=== PATIENT | female | born 1965 | race Caucasian/White ===

== ENCOUNTER 2017-11-25 21:34 | Emergency (ER) | payer BC ==
[2017-11-25] MEDS ORDERED: Albuterol/Ipratropium 3.0-0.5 MG/3 ML Neb Soln NEB ONE (22:34)
[2017-11-25] MEDS ORDERED: Azithromycin 500 MG Tab PO ONE (23:53)
[2017-11-25] MEDS ORDERED: Potassium Chloride 20 MEQ Tab.ER PO ONE (23:53)
[2017-11-25] MEDS ORDERED: methylPREDNISolone Sodium Succinate 125 MG/2 ML SDV IM ONE (23:56)
--- NOTE | 2017-11-25 23:59 | EDM.PDOC ---
ED HPI GENERAL MEDICAL PROBLEM - General Chief Complaint: General Stated Complaint: SOB,SHAKY,DIZZY Time Seen by Provider: 11/25/17 21:50 Source of Information: Reports: Patient History Limitations: Reports: No Limitations - History of Present Illness INITIAL COMMENTS - FREE TEXT/NARRATIVE: c/o sob intermittent x 1w more anxious tonight when lying in bed, thinks COPD getting worse, run out of Symbicort and Ventolin HFA smoking 1/2 ppd, still drinking alcohol daily, thinking re using nicotine vapor no f/c/d intermittent cough, no sputum K low at 3.2, has been low before CBC neg, yet CRP 1.1 suggesting infection CxR 2V neg a little better after Duoneb - Related Data Allergies Allergy/AdvReac Type Severity Reaction Status Date / Time codeine Allergy Nausea Verified 11/26/17 00:21 Home Meds: Home Meds Albuterol Sulfate [Ventolin Hfa] 2 puff IH Q4H PRN #1 hfa.aer.ad 11/26/17 [Rx] Azithromycin [Zithromax] 250 mg PO DAILY #4 tab 11/26/17 [Rx] Budesonide/Formoterol Fumarate [Symbicort 160-4.5 Mcg Inhaler] 1 puff IH BID #1 canister 11/26/17 [Rx] Potassium Chloride 20 meq PO BID #6 tab.er.prt 11/26/17 [Rx] predniSONE 20 mg PO DAILY #7 tab 11/26/17 [Rx] Past Medical History Respiratory History: Reports: COPD - Past Surgical History HEENT Surgical History: Reports: Naso-Sinus Surgery Female Surgical History: Reports: Hysterectomy Musculoskeletal Surgical History: Reports: Arthroscopic Knee, Other (See Below) Other Musculoskeletal Surgeries/Procedures:: Chronic pain neck and back. Cervical fusion, back fusion. Needs replacements to both knees. Social & Family History - Tobacco Use Smoking Status *Q: Current Every Day Smoker Years of Tobacco use: 35 Packs/Tins Daily: 0.5 - Alcohol Use Days Per Week of Alcohol Use: 4 Number of Drinks Per Day: 4 Total Drinks Per Week: 16 - Recreational Drug Use Recreational Drug Use: No ED ROS GENERAL - Review of Systems Review Of Systems: See Below Constitutional: Reports: No Symptoms HEENT: Reports: No Symptoms Respiratory: Reports: Shortness of Breath, Cough Cardiovascular: Reports: No Symptoms Endocrine: Reports: No Symptoms GI/Abdominal: Reports: No Symptoms : Reports: No Symptoms Musculoskeletal: Reports: No Symptoms Skin: Reports: No Symptoms Neurological: Reports: No Symptoms Psychiatric: Reports: No Symptoms Hematologic/Lymphatic: Reports: No Symptoms Immunologic: Reports: No Symptoms ED EXAM, GENERAL - Physical Exam Exam: See Below Exam Limited By: No Limitations General Appearance: Alert, WD/WN, No Apparent Distress, Anxious Ears: Normal External Exam Nose: Normal Inspection, Normal Mucosa, No Blood Throat/Mouth: Normal Inspection, Normal Lips, Normal Teeth, Normal Gums, Normal Oropharynx, Normal Voice, No Airway Compromise Head: Atraumatic, Normocephalic Neck: Normal Inspection, Supple, Non-Tender, Full Range of Motion Respiratory/Chest: Other (PO 97% RA, anxious yet fair to good AE, no cough appreciated, a few rhonchi and crackles on L side c/w COPD, no discrete rales) Cardiovascular: Regular Rate, Rhythm, No Edema, No Gallop, No JVD, No Rub, Other (2/6 TRAV at LSB) GI/Abdominal: Normal Bowel Sounds, Soft, Non-Tender, No Distention Back Exam: Normal Inspection, Full Range of Motion Extremities: Normal Inspection, Normal Range of Motion, Non-Tender, No Pedal Edema Neurological: Alert, Oriented, CN II-XII Intact, Normal Cognition, No Motor/ Sensory Deficits Psychiatric: Anxious Skin Exam: Warm, Dry, Intact, Normal Color, No Rash Lymphatic: No Adenopathy Course - Orders/Labs/Meds Orders: Active Orders 24 hr Category Date Time Status RT Aerosol Therapy [RC] ASDIRECTED Care 11/25/17 22:34 Active Chest 2V [CR] Stat Exams 11/25/17 22:44 Taken Azithromycin [Zithromax] Med 11/25/17 23:53 Once 500 mg PO ONETIME ONE Potassium Chloride [Klor-Con M20] Med 11/25/17 23:53 Once 40 meq PO ONETIME ONE Labs: Laboratory Tests 11/25/17 11/25/17 11/25/17 Range/Units 23:10 23:10 23:10 WBC 8.9 (4.5-12.0) X10-3/uL RBC 4.88 (3.23-5.20) x10(6)uL Hgb 15.4 (11.5-15.5) g/dL Hct 45.5 (30.0-51.3) % MCV 93.2 (80-96) fL MCH 31.5 (27.7-33.6) pg MCHC 33.8 (32.2-35.4) g/dL RDW 14.0 (11.5-15.5) % Plt Count 186 (125-369) X10(3)uL MPV 8.1 (7.4-10.4) fL Neut % (Auto) 66.9 (46-82) % Lymph % (Auto) 23.4 (13-37) % [place] % (Auto) 6.6 (4-12) % Eos % (Auto) 2 (1.0-5.0) % Baso % (Auto) 1 (0-2) % Neut # (Auto) 5.9 (1.6-8.3) # Lymph # (Auto) 2.1 (0.6-5.0) # [place] # (Auto) 0.6 (0.0-1.3) # Eos # (Auto) 0.2 (0.0-0.8) # Baso # (Auto) 0.1 (0.0-0.2) # Sodium 139 (135-145) mmol/L Potassium 3.2 L (3.5-5.3) mmol/L Chloride 99 L (100-110) mmol/L Carbon Dioxide 30 (21-32) mmol/L BUN 14 (7-18) mg/dL Creatinine 0.7 (0.55-1.02) mg/dL Est Cr Clr Drug Dosing TNP Estimated GFR (MDRD) > 60 (>60) BUN/Creatinine Ratio 20.0 (9-20) Glucose 109 (80-116) mg/dL Calcium 8.9 (8.6-10.2) mg/dL Total Bilirubin 0.5 (0.1-1.3) mg/dL AST 50 H (5-25) IU/L ALT 83 H (12-36) U/L Alkaline Phosphatase 113 H (56-112) IU/L Troponin I < 0.017 L (<0.017-0.056) ng/mL C-Reactive Protein 1.1 H (0.5-0.9) mg/dL Total Protein 7.4 (6.0-8.0) g/dL Albumin 3.6 (3.5-5.2) g/dL Globulin 3.8 g/dL Albumin/Globulin Ratio 1.0 Meds: Medications Discontinued Medications Generic Name Dose Route Start Last Admin Trade Name Freq PRN Reason Stop Dose Admin Albuterol/Ipratropium 3 ml 11/25/17 22:34 11/25/17 22:50 Duoneb 3.0-0.5 Mg/3 Ml NEB 11/25/17 22:35 3 ml ONETIME ONE Administration Departure - Departure Time of Disposition: 00:00 Disposition: Home, Self-Care 01 Condition: Good Clinical Impression: COPD exacerbation, Hypokalemia, Nicotine dependence - Discharge Information Prescriptions: Albuterol Sulfate [Ventolin Hfa] 2 puff IH Q4H PRN #1 hfa.aer.ad PRN Reason: Wheezing Azithromycin [Zithromax] 250 mg PO DAILY #4 tab Budesonide/Formoterol Fumarate [Symbicort 160-4.5 Mcg Inhaler] 1 puff IH BID #1 canister Potassium Chloride 20 meq PO BID #6 tab.er.prt predniSONE 20 mg PO DAILY #7 tab Instructions: Chronic Obstructive Pulmonary Disease, What You Need to Know About Electronic Cigarettes, Hypokalemia Referrals: Kojo Mancera MD [Primary Care Provider] - Additional Instructions: For infection, take azithromycin 250 mg 1 tab daily for 4 days. To replace potassium, take potassium 20 meq 1 tab 2 times a day for 3 days. To keep airways open, take prednisone 20 mg 1 tab dialy for 7 days. To keep airways open, use Symbicort 1 inhalation 2 times a day. To open airways, use albuterol inhaler 2 puffs every 4 hours as needed. Stop smoking. See your doctor in 2-3 days. Return to ED if you feel worse. Call your Physician or Return to Emergency Department if: * Your condition worsens in any way. * You develop fever greater than 100.4. * You have vomitting that does not stop with medications. * You have pain that is not controlled with medications. - My Orders Last 24 Hours: My Active Orders 11/25/17 22:34 RT Aerosol Therapy [RC] ASDIRECTED 11/25/17 22:44 Chest 2V [CR] Stat 11/25/17 23:53 Azithromycin [Zithromax] 500 mg PO ONETIME ONE Potassium Chloride [Klor-Con M20] 40 meq PO ONETIME ONE - Assessment/Plan Last 24 Hours: My Active Orders 11/25/17 22:34 RT Aerosol Therapy [RC] ASDIRECTED 11/25/17 22:44 Chest 2V [CR] Stat 11/25/17 23:53 Azithromycin [Zithromax] 500 mg PO ONETIME ONE Potassium Chloride [Klor-Con M20] 40 meq PO ONETIME ONE
--- NOTE | 2017-11-26 10:38 | CR ---
INDICATION: Cough. CHEST: PA and lateral views of the chest were obtained 11/25/2017. No comparisons. Flattened diaphragm leaves and prominent AP diameter, with mild hyperaeration, suggest COPD - correlate clinically. The heart is normal in size and shape. The aorta is somewhat tortuous. Bony structures appear to be intact. Slightly heavy interstitial markings are noted, which may represent fibrosis, although active interstitial disease may also be present, such as unusual pneumonia. This should be correlated clinically. No consolidating pneumonia or effusion was seen, however. Findings suggest exogenous obesity. IMPRESSION: 1. No definite acute process, but cannot exclude unusual interstitial pneumonia. No evidence of CHF or consolidating pneumonia or effusion was seen. 2. ASD aorta. 3. Probable COPD. 4. Appearance of exogenous obesity. MTDD
== END 2017-11-26 00:37 | disposition home or self-care (01) ==
LOC: FB.ED 21:34
DX: J44.1 Chronic obstructive pulmonary disease with (acute) exacerbation (principal); F17.210 Nicotine dependence, cigarettes, uncomplicated; E87.6 Hypokalemia; Z88.5 Allergy status to narcotic agent; Z79.899 Other long term (current) drug therapy
CPT/HCPCS: 36415; 71046; 80053; 84484; 85025; 86140; 87804; 94640; 96372; 99284; A9270; J2930; J7620

== ENCOUNTER 2021-11-29 23:12 | Emergency (ER) | payer MEDICAID ==
[2021-11-29] MEDS ORDERED: Acetaminophen/HYDROcodone 325-5 MG Tab PO STA (23:45)
[2021-11-29] MEDS ORDERED: Cyclobenzaprine 10 MG Tab PO STA (23:45)
[2021-11-29] MEDS ORDERED: Ketorolac 30 MG/ML SDV IM STA (23:46)
== END 2021-11-30 00:15 | disposition home or self-care (01) ==
LOC: FB.ED 23:12
DX: M51.36 Other intervertebral disc degeneration, lumbar region (principal); J44.9 Chronic obstructive pulmonary disease, unspecified; Z88.5 Allergy status to narcotic agent
CPT/HCPCS: 96372; 99282; 99283; A9270-GY; J1885

== ENCOUNTER 2022-01-16 06:14 | Day surgery (SDC) | payer MEDICAID ==
[2022-01-16] MEDS ORDERED: Ketamine 500 mg/10 ML MDV IV ONE (06:15)
[2022-01-16] MEDS ORDERED: Propofol 200 MG/20 ML SDV IV ONE (06:15)
[2022-01-16] MEDS ORDERED: Midazolam 1 MG/ML 2 ML SDV IV ONE (06:15)
[2022-01-16] MEDS ORDERED: Sodium Chloride 0.9% 10 ML Syringe FLUSH PRN (06:15)
[2022-01-16] MEDS: Lactated Ringers 1,000 ML IV SCH (07:09)
[2022-01-19 00:10] LABS: ADENOVIRUS F 40/41 Not Detected (Not Detected); ASTROVIRUS Not Detected (Not Detected); C DIFFICILE TOXIN A/B Not Detected (Not Detected); CAMPYLOBACTER Not Detected (Not Detected); CRYPTOSPORIDIUM Not Detected (Not Detected); CYCLOSPORA CAYETANENSIS Not Detected (Not Detected); ENTAMOEBA HISTOLYTICA Not Detected (Not Detected); ENTEROAGGREGATIVE E COLI Not Detected (Not Detected); ENTEROPATHOGENIC E COLI Not Detected (Not Detected); ENTEROTOXIGENIC E COLI Not Detected (Not Detected); GIARDIA LAMBLIA Not Detected (Not Detected); NOROVIRUS GI/GII Not Detected (Not Detected); PLESIOMONAS SHIGELLOIDES Not Detected (Not Detected); ROTAVIRUS A Not Detected (Not Detected); SALMONELLA Not Detected (Not Detected); SAPOVIRUS Not Detected (Not Detected); SHIGA-TOXIN-PRODUCING E COLI Not Detected (Not Detected); SHIGELLA/ENTEROINVASIVE E COLI Not Detected (Not Detected); VIBRIO Not Detected (Not Detected); VIBRIO CHOLERAE Not Detected (Not Detected); YERSINIA ENTEROCOLITICA Not Detected (Not Detected)
== END 2022-01-16 09:00 | disposition home or self-care (01) ==
LOC: FB.SDS 06:14
PROVIDERS: ATTEND Surgery
DX: Z12.11 Encounter for screening for malignant neoplasm of colon (principal); K51.40 Inflammatory polyps of colon without complications; K52.89 Other specified noninfective gastroenteritis and colitis; J44.9 Chronic obstructive pulmonary disease, unspecified; K21.9 Gastro-esophageal reflux disease without esophagitis; I10 Essential (primary) hypertension; E78.5 Hyperlipidemia, unspecified; F41.9 Anxiety disorder, unspecified; F17.210 Nicotine dependence, cigarettes, uncomplicated; Z88.3 Allergy status to other anti-infective agents; Z91.041 Radiographic dye allergy status; Z88.5 Allergy status to narcotic agent; Z79.899 Other long term (current) drug therapy
CPT/HCPCS: 00812-QZ; 0097U; 88305; 89055; J2250; J2704; J3490; J7120

== ENCOUNTER 2023-01-11 01:15 | Emergency (ER) | payer MEDICAID ==
[2023-01-11 01:42] LABS: ESTIMATED GFR 87 mL/min (>60)
[2023-01-11] MEDS ORDERED: HYDROmorphone 2 MG/ML SDV IM ONE (02:03)
== END 2023-01-11 02:22 | disposition home or self-care (01) ==
LOC: FB.ED 01:15
DX: G89.18 Other acute postprocedural pain (principal); M25.551 Pain in right hip; E78.00 Pure hypercholesterolemia, unspecified; I10 Essential (primary) hypertension; J44.9 Chronic obstructive pulmonary disease, unspecified; K21.9 Gastro-esophageal reflux disease without esophagitis; E66.9 Obesity, unspecified; F17.210 Nicotine dependence, cigarettes, uncomplicated; Z96.641 Presence of right artificial hip joint; Z88.5 Allergy status to narcotic agent; Z91.041 Radiographic dye allergy status; Z88.8 Allergy status to other drugs, medicaments and biological substances; Z79.51 Long term (current) use of inhaled steroids; Z79.899 Other long term (current) drug therapy
CPT/HCPCS: 36415; 73501; 80053; 85025; 86140; 96372; 99283; J1170

== ENCOUNTER 2023-02-11 16:39 | Emergency (ER) | payer MEDICAID ==
[2023-02-11 17:36] LABS: BASOPHILS ABSOLUTE AUTO 0.1 x10-3/uL (0.0-0.1); BASOPHILS PERCENT AUTO 0.8 % (0.2-1.5); EOSINOPHILS ABSOLUTE AUTO 0.1 x10-3/uL (0.0-0.8); EOSINOPHILS PERCENT AUTO 0.7 % (0.6-8.1); HEMOGLOBIN 11.7 g/dL (11.4-15.5); LYMPHOCYTES ABSOLUTE AUTO 0.7 x10-3/uL (1.0-4.4); LYMPHOCYTES PERCENT AUTO 8.5 % (18.4-52.1); MEAN CORPUSCULAR HEMOGLOBIN 31.5 pg (23.9-33.9); MEAN CORPUSCULAR HGB CONC 33.5 g/dL (31.9-34.8); MEAN PLATELET VOLUME 6.8 fL (7.1-12.4); MONOCYTES ABSOLUTE AUTO 0.8 x10-3/uL (0.3-1.0); MONOCYTES PERCENT AUTO 9.6 % (4.4-15.7); NEUTROPHILS ABSOLUTE AUTO 6.7 x10-3/uL (1.5-6.3); NEUTROPHILS PERCENT AUTO 80.4 % (30.8-76.2); PLATELET COUNT,PLT 295 x10(3)uL (151-488); RED BLOOD CELL COUNT 3.72 x10(6)uL (3.60-5.20); RED CELL DISTRIBUTION WIDTH 14.8 % (12.3-16.5); WHITE BLOOD CELL COUNT,WBC 8.3 x10-3/uL (3.0-10.3)
[2023-02-11 17:42] LABS: BLOOD UREA NITROGEN,BUN 12 mg/dL (7-18); BUN/CREATININE RATIO 17.1 (9-20); CALCIUM 8.9 mg/dL (8.6-10.2); CARBON DIOXIDE,CO2 28 mmol/L (21-32); CHLORIDE,CL 90 mmol/L (100-110); CREATININE 0.7 mg/dL (0.55-1.02); ESTIMATED GFR 102 mL/min (>60); GLUCOSE RANDOM 126 mg/dL (80-116); SODIUM,NA 126 mmol/L (135-145)
[2023-02-11 17:47] LABS: A/G RATIO 0.6; ALANINE AMINOTRANSFERASE,ALT 30 U/L (12-36); ALKALINE PHOSPHATASE 210 IU/L (56-112); ASPARTATE AMNIOTRANSFERASE,AST 36 IU/L (5-25); BILIRUBIN TOTAL 0.5 mg/dL (0.1-1.3); PROTEIN TOTAL,TP 7.9 g/dL (6.0-8.0)
[2023-02-11 17:50] LABS: LACTIC ACID 1.3 mmol/L (0.4-2.0)
[2023-02-11 18:14] LABS: INFLUENZA A NAA NEGATIVE (NEGATIVE); INFLUENZA B NAA NEGATIVE (NEGATIVE)
[2023-02-11 18:41] LABS: CORONAVIRUS COVID-19 NAA NEGATIVE (NEGATIVE)
[2023-02-11] MEDS ORDERED: Ketorolac 30 MG/ML SDV IVPUSH ONE (18:54)
[2023-02-11] MEDS ORDERED: Piperacillin/Tazobactam 4.5 GM in Sodium Chloride 0.9% 100 ML IV STA (18:59)
[2023-02-11] MEDS ORDERED: Nicotine 21 MG/24 Hr Patch TRDERM STA (19:07)
== END 2023-02-11 20:15 | disposition home or self-care (01) ==
LOC: FB.ED 16:39
DX: T84.51XA Infection and inflammatory reaction due to internal right hip prosthesis, initial encounter (principal); E78.00 Pure hypercholesterolemia, unspecified; I10 Essential (primary) hypertension; J44.9 Chronic obstructive pulmonary disease, unspecified; K21.9 Gastro-esophageal reflux disease without esophagitis; E03.9 Hypothyroidism, unspecified; E66.9 Obesity, unspecified; Z68.30 Body mass index [BMI] 30.0-30.9, adult; Z88.5 Allergy status to narcotic agent; Z91.041 Radiographic dye allergy status; Z88.8 Allergy status to other drugs, medicaments and biological substances; Z79.899 Other long term (current) drug therapy; Z87.891 Personal history of nicotine dependence; Z20.822 Contact with and (suspected) exposure to COVID-19; Z96.641 Presence of right artificial hip joint
CPT/HCPCS: 0240U; 36415; 74176; 80053; 83605; 85025; 86140; 87040; 96365; 96375; 99285-25; J1885; J2543; J3490

== ENCOUNTER 2023-11-29 19:13 | Emergency (ER) | payer MEDICAID ==
[2023-11-29] MEDS ORDERED: Sodium Chloride 0.9% 10 ML Syringe FLUSH PRN (19:37)
[2023-11-29] MEDS: Sodium Chloride 0.9% 1,000 ML IV SCH (19:59)
[2023-11-29] MEDS: Ondansetron 4 MG/2 ML SDV IVPUSH ONE (20:03)
[2023-11-29] MEDS: HYDROmorphone 2 MG/ML SDV IVPUSH ONE (20:03)
[2023-11-29 20:24] LABS: BLOOD UREA NITROGEN,BUN 15 mg/dL (7-18); BUN/CREATININE RATIO 18.8 (9-20); CALCIUM 9.1 mg/dL (8.6-10.2); CARBON DIOXIDE,CO2 23 mmol/L (21-32); CHLORIDE,CL 93 mmol/L (100-110); CREATININE 0.8 mg/dL (0.55-1.02); ESTIMATED GFR 86 mL/min (>60); GLUCOSE RANDOM 135 mg/dL (80-116); POTASSIUM,K 3.2 mmol/L (3.5-5.3); SODIUM,NA 128 mmol/L (135-145)
[2023-11-29 20:30] LABS: A/G RATIO 0.7; ALANINE AMINOTRANSFERASE,ALT 33 U/L (12-36); ALBUMIN 3.2 g/dL (3.5-5.2); ALKALINE PHOSPHATASE 174 IU/L (56-112); ASPARTATE AMNIOTRANSFERASE,AST 52 IU/L (5-25); BASOPHILS PERCENT AUTO 0.8 % (0.2-1.5); EOSINOPHILS PERCENT AUTO 0.8 % (0.6-8.1); HEMATOCRIT 32.5 % (34.2-48.2); HEMOGLOBIN 10.8 g/dL (11.4-15.5); LYMPHOCYTES ABSOLUTE AUTO 0.7 x10-3/uL (1.0-4.4); LYMPHOCYTES PERCENT AUTO 11.5 % (18.4-52.1); MEAN CORPUSCULAR HEMOGLOBIN 33.1 pg (23.9-33.9); MEAN CORPUSCULAR HGB CONC 33.1 g/dL (31.9-34.8); MEAN PLATELET VOLUME 8.1 fL (7.1-12.4); MONOCYTES ABSOLUTE AUTO 0.7 x10-3/uL (0.3-1.0); MONOCYTES PERCENT AUTO 11.9 % (4.4-15.7); NEUTROPHILS ABSOLUTE AUTO 4.5 x10-3/uL (1.5-6.3); PLATELET COUNT,PLT 144 x10(3)uL (151-488); PROTEIN TOTAL,TP 7.5 g/dL (6.0-8.0); RED BLOOD CELL COUNT 3.25 x10(6)uL (3.60-5.20)
== END 2023-11-29 21:54 | disposition home or self-care (01) ==
LOC: FB.ED 19:13
DX: R11.2 Nausea with vomiting, unspecified (principal); Z96.642 Presence of left artificial hip joint; I10 Essential (primary) hypertension; K21.9 Gastro-esophageal reflux disease without esophagitis; J44.9 Chronic obstructive pulmonary disease, unspecified; E78.00 Pure hypercholesterolemia, unspecified; E66.9 Obesity, unspecified; E03.9 Hypothyroidism, unspecified; Z88.8 Allergy status to other drugs, medicaments and biological substances; Z91.041 Radiographic dye allergy status; Z90.710 Acquired absence of both cervix and uterus; Z79.899 Other long term (current) drug therapy
CPT/HCPCS: 74019; 80053; 85025; 96361; 96374; 96375; 99284; 99284-25; J1170; J2405; J7030

== ENCOUNTER 2025-06-24 17:17 | Emergency (ER) | payer MEDICARE, OTHER ==
[2025-06-24] MEDS ORDERED: Naloxone 0.4 MG/ML SDV IVPUSH PRN (17:43)
[2025-06-24] MEDS: Sodium Chloride 0.9% 10 ML Syringe FLUSH PRN (17:48)
[2025-06-24] MEDS: Ketorolac 30 MG/ML SDV IVPUSH ONE (17:51)
[2025-06-24] MEDS: HYDROmorphone 2 MG/ML SDV IVPUSH STA (18:05)
[2025-06-24] MEDS: Acetaminophen/oxyCODONE 325-5 MG Tab PO STA (18:38)
== END 2025-06-24 19:17 | disposition home or self-care (01) ==
LOC: FB.ED 17:17
DX: G89.18 Other acute postprocedural pain (principal); M25.561 Pain in right knee; I10 Essential (primary) hypertension; E78.00 Pure hypercholesterolemia, unspecified; J44.9 Chronic obstructive pulmonary disease, unspecified; E66.9 Obesity, unspecified; Z68.35 Body mass index [BMI] 35.0-35.9, adult; F17.200 Nicotine dependence, unspecified, uncomplicated; Z96.651 Presence of right artificial knee joint; Z90.710 Acquired absence of both cervix and uterus; Z88.5 Allergy status to narcotic agent; Z88.8 Allergy status to other drugs, medicaments and biological substances; Z91.041 Radiographic dye allergy status; Z79.899 Other long term (current) drug therapy
CPT/HCPCS: 96374; 96375; 99283-25; A9270-GY; J1171; J1885